=== PATIENT | female | born 1935 | race Caucasian/White ===

== ENCOUNTER 2016-07-11 06:03 | Day surgery (SDC) | payer MEDICARE ==
[2016-07-06 12:47] VITALS: BMI 27.9
[2016-07-11] MEDS ORDERED: SODIUM CHLORIDE 0.9% 500 ML IV ONE (06:27)
[2016-07-11 06:28] LABS: Glucose,Whole Blood 115 mg/dL (75-99)
[2016-07-11 06:30] VITALS: RESP 16; TEMP 98.2
[2016-07-11] MEDS ORDERED: MIDAZOLAM 2 MG/2 ML VIAL ONE (06:52)
[2016-07-11] MEDS ORDERED: fentaNYL (PF) 50 MCG/ML 2 ML AMP ONE (06:52)
[2016-07-11] MEDS ORDERED: BENZOCAINE SPRAY 100 APPLIC/CAN MUCOUS MEM ONE ×2 (07:00→07:02)
[2016-07-11] MEDS ORDERED: MIDAZOLAM 2 MG/2 ML VIAL IVP ONE (07:02)
[2016-07-11] MEDS ORDERED: fentaNYL (PF) 50 MCG/ML 2 ML AMP IV ONE (07:02)
[2016-07-11] MEDS ORDERED: FUROSEMIDE 10 MG TAB PO PRN (07:26)
[2016-07-11] MEDS ORDERED: SODIUM CHLORIDE 0.9% 1,000 ML IV SCH (07:30)
[2016-07-11 08:15] VITALS: BP 134/56; PULSE 69
[2016-07-11] MEDS ORDERED: ASPIRIN 81 MG CHEW PO SCH (09:00)
[2016-07-11] MEDS ORDERED: PANTOPRAZOLE 40 MG TABLET PO SCH (09:00)
[2016-07-11] MEDS ORDERED: metFORMIN 500 MG TAB PO SCH (09:00)
--- NOTE | 2016-07-11 10:36 | ECHOT ---
DATE OF SERVICE: INDICATION: Evaluation of aortic valve. PROCEDURE: After explaining the procedure to the patient as well as risks and complications, her blood pressure, heart rate, O2 saturation were monitored. Following that, the throat was sprayed with Cetacaine. Following that, she received 50 mcg intravenous fentanyl and 1 mg intravenous Versed after achieving moderate conscious sedated state, the probe was introduced into the esophagus without difficulty. Images were obtained. Following that, the probe was removed. There was no immediate complication. FINDINGS: Left atrial size is mildly dilated. Left ventricular size and systolic function are normal. The aortic valve revealed fibrocalcific change of the aortic cusp, it is a tricuspid valve with reduced opening. By planimetry, the valve area is between 0.9 and 1 sq. cm. The mitral valve revealed mitral annular calcification. There was mild prolapse of the posterior mitral valve leaflets. Tricuspid valve is normal. Descending thoracic aorta revealed mild atherosclerotic changes. Contrast bubble study revealed no evidence of shunting across the interatrial septum with Valsalva maneuver. No pericardial effusion was noted. Doppler pulse wave and color flow Doppler were obtained and revealed a peak gradient of 15 mm with a mean gradient of 10 mmHg across the aortic valve. There was mild to moderate eccentric mitral regurgitation with mild tricuspid regurgitation. There was no shunting by color Doppler study. CONCLUSION: 1. Dilated left atrium. 2. Normal left ventricular size and systolic function. 3. Tricuspid aortic valve with severe calcification and reduced opening with valve area of 0.9 to 1 sq cm and a mean gradient of 10 mmHg consistent with a normal function with low grade significant stenosis. 4. Mitral annular calcification with mild prolapse of the posterior mitral valve leaflets with mild to moderate mitral regurgitation. 5. Mild atherosclerotic changes of the descending thoracic aorta. 6. No evidence of shunting across the interatrial septum. [facility]
[2016-07-11] MEDS ORDERED: METOPROLOL SUCCINATE (ER) 50 MG TAB.ER.24H PO SCH (21:00)
[2016-07-11] MEDS ORDERED: ATORVASTATIN 40 MG TAB PO SCH (21:00)
[2016-07-12] MEDS ORDERED: LISINOPRIL 10 MG TAB PO SCH (09:00)
[2016-07-12] MEDS ORDERED: MULTIVITAMINS, THERA 1 EACH TAB PO SCH (12:00)
== END 2016-07-11 08:50 | disposition home or self-care (01) ==
LOC: CATHCVL 06:03
PROVIDERS: ATTEND Internal Medicine Interventional Cardiology
DX: I35.0 Nonrheumatic aortic (valve) stenosis (principal); I51.7 Cardiomegaly; I34.1 Nonrheumatic mitral (valve) prolapse; I70.0 Atherosclerosis of aorta; I10 Essential (primary) hypertension; E78.2 Mixed hyperlipidemia; E11.9 Type 2 diabetes mellitus without complications; Z82.49 Family history of ischemic heart disease and other diseases of the circulatory system; Z79.84 Long term (current) use of oral hypoglycemic drugs; Z79.82 Long term (current) use of aspirin; Z79.891 Long term (current) use of opiate analgesic; Z79.899 Other long term (current) drug therapy
CPT/HCPCS: 93312; 93320; 93325; 99152; J2250; J3010

== ENCOUNTER 2016-07-28 06:29 | Day surgery (SDC) | payer MEDICARE ==
[2016-07-26 10:11] VITALS: BMI 29.8
[~2016-07-28 06:29] MED LIST: ALPRAZolam 0.25 MG TAB PO PRN; ALPRAZolam 0.5 MG TAB PO PRN; ASPIRIN 325 MG TAB PO STA; ATORVASTATIN 80 MG TAB PO STA; NITROGLYCERIN SL TABS 0.4 MG TAB SUBLINGUAL PRN; SODIUM CHLORIDE 0.9% 1,000 ML in EMPTY BAG 1 BAG IV ONE
[2016-07-28 07:03] LABS: Basophils # (A) 0.1 k/uL (0-0.2); Basophils % (A) 1 %; CH 30.3; CHCM 33.7; Eosinophils # (A) 0.3 k/uL (0-0.7); Eosinophils % (A) 4 %; HCT 35.8 % (34.0-46.0); HGB 11.8 gm/dL (11.4-16.0); Luc # (Auto) 0.15; Luc % (Auto) 2; Lymphocytes # (A) 2.3 k/uL (1.0-4.8); Lymphocytes % (A) 28 %; MCH 29.8 pg (25.0-35.0); MCV 90.3 fL (80.0-100.0); Mean Platelet Volume 6.6; Monocytes # (A) 0.5 k/uL (0-1.0); Monocytes % (A) 6 %; Neutrophils # (A) 5.1 k/uL (1.3-7.7); Neutrophils % (A) 60 %; RBC 3.97 m/uL (3.80-5.40); RDW 14.3 % (11.5-15.5); WBC 8.5 k/uL (3.8-10.6); WBC (Perox) 8.68
[2016-07-28 07:09] LABS: Glucose,Whole Blood 119 mg/dL (75-99)
[2016-07-28] MEDS ORDERED: LIDOCAINE 2% INJ 20 MG/ML (20 ML MDV) ONE (07:41)
[2016-07-28] MEDS ORDERED: diphenhydrAMINE 50 MG/ML 1 ML VIAL ONE (07:44)
[2016-07-28] MEDS ORDERED: fentaNYL (PF) 50 MCG/ML 2 ML AMP ONE (07:44)
[2016-07-28] MEDS ORDERED: fentaNYL (PF) 50 MCG/ML 2 ML AMP IV ONE (07:45)
[2016-07-28] MEDS ORDERED: diphenhydrAMINE 50 MG/ML 1 ML VIAL IVP ONE (07:45)
[2016-07-28] MEDS ORDERED: LIDOCAINE 2% INJ 20 MG/ML SQ ONE (07:47)
[2016-07-28] MEDS ORDERED: IOHEXOL 350 MG/ML 125ML BOTTLE INJ ONE (08:00)
[2016-07-28 08:17] LABS: Site PA
[2016-07-28 08:19] LABS: Site RA
[2016-07-28 08:22] LABS: Site FA
[2016-07-28] MEDS ORDERED: RX INFO: IV CONTRAST WAS GIVEN 1 EACH MISC MISCELLANE PRN (08:51)
[2016-07-28] MEDS ORDERED: FUROSEMIDE 10 MG TAB PO PRN (08:52)
[2016-07-28] MEDS ORDERED: MULTIVITAMINS, THERA 1 EACH TAB PO SCH (09:00)
[2016-07-28] MEDS ORDERED: SODIUM CHLORIDE 0.9% 1,000 ML IV SCH (09:00)
--- NOTE | 2016-07-28 11:43 | CT ---
EXAMINATION TYPE: CT chest wo con DATE OF EXAM: 07/28/2016 COMPARISON: NONE HISTORY: Evaluate ascending aortic calcification or aneurysm, presumed abnormal outside x-ray CT DLP: 338.50 mGycm. Automated Exposure Control for Dose Reduction was Utilized. TECHNIQUE: CT scan of the thorax is performed without IV contrast. FINDINGS: LUNGS: There is dependent atelectatic change in both lungs. There is no pleural effusion or pneumotho rax seen bilaterally. Tracheobronchial tree is patent. MEDIASTINUM: Lack of IV contrast is noted to limit evaluation for mediastinal and especially hilar ad enopathy. There are no definitive greater than 1 cm hilar or mediastinal lymph nodes. Main pulmonary artery measures 3.0 cm diameter on axial image 23. Adjacent ascending aorta measures 3.4 cm in diamet er. There is prominent coronary artery calcification. There is moderate calcified plaque in the aorti c arch extending into descending aorta. No cardiomegaly or significant pericardial effusion is seen. Mitral valvular surgery or calcifications are suspected. There is small to moderate size hiatal herni a. OTHER: Contrast excretion in collecting systems suggest contrast from recent prevascular procedure or outside recent CT. Aorta becomes small caliber infrarenal level measuring 1.3 cm in diameter, modera te to severe calcified plaque is present at this level. Mild multilevel spurring and spine is noted. There is scarring and dystrophic calcification left breast from lumpectomy with surgical clips in lef t axilla. IMPRESSION: Moderate calcified atherosclerotic change aortic arch and descending aorta. No aneurysm i s evident. No significant acute pulmonary process is seen.
--- NOTE | 2016-07-28 12:42 | P.GSCN ---
History of Present Illness Consult date: 07/28/16 Reason for Consult: evaluation for surgical aortic valve replacement and coronary artery bypass grafting Requesting physician: Terri Amato History of present illness: patient is a pleasant 81 years old female referred by Dr. Amato for evaluation of severe aortic valve stenosis and coronary artery disease. patient had noticed swelling in both lower extremities which was in [place] and had a workup there that concluded to severe aortic valve stenosis. she had workup here by Dr. Amato including a transesophageal echocardiogram that concluded to a low gradient normal output severe aortic valve stenosis. Cardiac catheterization today showed extensive calcification of the coronary vessels with severe ostial stenosis of the right coronary artery and mid to distal left anterior descending artery stenosis. Patient complains of stable angina with exertion. She denies syncope. At this point she notices more swelling in her legs at the end of the day and with dependent position. 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 AND LUMPECTOMY., SEE CARDIOLOGY H & P. History of Any Multi-Drug Resistant Organisms: None Reported Past Surgical History: Breast Surgery, Orthopedic Surgery Additional Past Surgical History / Comment(s): CATARACTS, ARTHROSCOPY CATHY KNEES , ENDOMETRIAL POLYPS, LEFT BREAST LUMPECTOMY, ESOPHAGEAL DILATION X2., EPIDURAL INJECTIONS. Past Anesthesia/Blood Transfusion Reactions: Postoperative Nausea & Vomiting ( PONV) Past Psychological History: No Psychological Hx Reported Smoking Status: Never smoker Past Alcohol Use History: Rare Past Drug Use History: None Reported - Past Family History Mother Family Medical History: No Reported History Medications and Allergies Home Medications Medication Instructions Recorded Confirmed Type Aspirin [Adult Low Dose Aspirin EC] 81 mg PO DAILY 07/06/16 07/28/16 History Atorvastatin [Lipitor] 40 mg PO HS 07/06/16 07/28/16 History Furosemide [Lasix] 5 mg PO Q48H PRN 07/06/16 07/28/16 History Lansoprazole [Prevacid] 15 mg PO QAM 07/06/16 07/28/16 History Lisinopril [Prinivil] 10 mg PO QAM 07/06/16 07/28/16 History Metoprolol Succinate (ER) [Toprol 50 mg PO HS 07/06/16 07/28/16 History Xl] Multivitamin with Iron 1 each PO Q48H 07/06/16 07/28/16 History [Multivitamins with Iron] metFORMIN HCL [Glucophage] 500 mg PO BID 07/06/16 07/28/16 History Allergies Allergy/AdvReac Type Severity Reaction Status Date / Time ciprofloxacin [From Cipro] AdvReac leg cramps Verified 07/26/16 10:00 Surgical - Exam Vital Signs Temp Pulse Resp BP Pulse Ox 98.4 F 74 18 177/74 96 07/28/16 07:08 07/28/16 07:08 07/28/16 07:08 07/28/16 07:08 07/28/16 07:08 - General well developed, well nourished, no distress - Eyes normal ocular movement, no icteric - ENT no hearing loss, no congestion - Neck no masses, trachea midline - Respiratory normal respiratory effort, clear to auscultation - Cardiovascular Rhythm: regular Heart Sounds: normal: S1, S2 Abnormal Heart Sounds: systolic murmur - Abdomen Abdomen: soft, non tender, no guarding, no rigid, no rebound - Genitourinary deferred - Rectum deferred - Integumentary no rash, no abnormal pigmentation - Neurologic no disoriented, no combative - Musculoskeletal congenital malformation the right hand Results - Labs 07/28/16 06:50 Abnormal Lab Results - Last 24 Hours (Table) 07/28/16 Range/Units 06:51 POC Glucose (mg/dL) 119 H (75-99) mg/dL - Imaging CT scan - chest: report reviewed, image reviewed, other (calcification of the left subclavian artery that needs to be investigated to R/O significant stenosis if we pursue a surgical approach) Additional studies: JIM report performed on 07/11/2016 reviewed. Preserved systolic left ventricular function , severe aortic stenosis by planimetry with low gradient an [id number] mitral valve regurgitation cardiac catheterization today shows extensive consultation of the arch coronary vessels aortic sinuses and mitral annulus. There is severe calcific ostial stenosis of the right coronary artery. the RCA distal branches R small with diffuse stratification of the right coronary artery. So diffuse calcific disease of the left anterior descending artery with a severe stenosis in the mid to distal aspect. The circumflex system is calcified but is free of significant stenosis. Assessment and Plan Plan: 81 years old lady with above comorbidities with currently a low gradient severe aortic stenosis with preserved systolic function , extensive calcification of the coronary arteries with severe stenosis of the ostial right admit the distal LAD. Patient represents an intermediate risk for surgical aortic valve replacement and coronary artery bypass grafting. Her extensive calcific disease might increase her risks. Patient's would like to discuss also alternative strategy i.e a PTCA stenting/TAVR approach which I personally think might be reasonable. Patient to have further discussion with Dr. Amato. Thank you for the privilege of this consult
[2016-07-28] MEDS: LISINOPRIL 10 MG TAB PO SCH (17:38)
[2016-07-28] MEDS: PANTOPRAZOLE 40 MG TABLET PO SCH (17:39)
--- NOTE | 2016-07-28 18:25 | CC ---
Mrs. Yepez is an 81-year-old female with history of aortic stenosis, hypertension, hyperlipidemia and diabetes mellitus who presented with symptoms of episode of chest discomfort, exertional pattern. In view of that, recommendation was made regarding cardiac catheterization. The procedure as well as the risks and complications were discussed with the patient, who is in full understanding and agreement. PROCEDURE: Patient was brought to greenhouse laborer in fasting, semi-sedated state after receiving fentanyl and Benadryl and after achieving moderate conscious sedated state, using Xylocaine anesthesia and Seldinger technique, a 6 Tristanian sheath was introduced in the right femoral artery and an 8 Tristanian sheath in the right femoral vein. Right heart catheterization was performed using [place] catheter. Multiple pressure samples were obtained, cardiac output by thermodilution risk calculated. Following that, selective right and left coronary angiography was performed using 6 Tristanian 3-1/2 Bend left Alla and 4 bend right Alla catheter. Multiple views of coronary arteries, including hemiaxial views, were obtained. Following that, 6 Tristanian tight pigtail catheter was introduced into the left ventricle and a 30-degree VINSON view of the left ventricle was obtained. Following that, catheter and sheaths were removed. Hemostasis was obtained with deployment of an Angio-Seal in the right femoral artery and compression bright femoral vein. There were no immediate complications. HEMODYNAMICS: Right atrial saturation 76%. Pulmonary artery saturation 75%. Femoral artery saturation 97%. Cardiac output by thermodilution 6.2 L per minute and by April 4.9 L/m. Aortic valve area by thermodilution 0.87 and by April 1.02 cm2. Pulmonary capillary wedge pressure A wave of 12, V wave of 8 with a mean of 8 mmHg. Pulmonary artery systolic pressure of 38 with a diastolic of 10 and a mean of 22 mmHg. Right ventricle systolic 38 with an end-diastolic of 4 mmHg. Right atrium A wave of 6, V wave of 3 with a mean of 3 mmHg. There was a gradient of 40 mmHg across the aortic valve. FLUOROSCOPY: There was severe calcification involving all the coronary arteries heavy as well as calcification of mitral annulus and the aortic valve. Left main: This is a very short-sized vessel bifurcating immediately to the LAD and to the left circumflex. Left anterior descending artery: This vessel is large in caliber, reaching toward the apex with a wraparound apex segment, giving rise to 2 diagonal branches. The vessel is heavily calcified throughout its course, about 30% to 40% plaque proximally. In the mid segment, diffuse intimal disease up to 20% to 30%. In the mid-distal segment, there is an eccentric area of 80%. The rest of the vessel has no high-grade stenosis. Left circumflex: This is a nondominant vessel, large in caliber, giving rise to 2 obtuse marginal branches. The left circumflex has mild intimal disease without any evidence of high-grade stenosis. Right coronary artery: This is a large dominant vessel, bifurcating into PDA and posterolateral segment and branches, heavily calcified at the ostium. At the ostium, there is a 99% stenosis. The mid segment of the right coronary artery has another area of stenosis of about 70% to 80%. The rest of the vessel has diffuse disease without any high-grade stenosis. LEFT VENTRICULOGRAM: Left ventriculogram was performed in 30-degree VINSON view and revealed normal left ventricular size and systolic function. Ejection fraction is 60%. There was arrhythmia-induced mitral regurgitation. CONCLUSION: 1. Severely calcified coronary arteries and aortic valve. 2. Critical stenosis involving the ostium of the right coronary artery with significant disease in the mid left anterior descending artery and mild to moderate disease in the proximal left anterior descending artery and the circumflex. 3. Normal left ventricular size and systolic function. 4. Severe aortic stenosis. RECOMMENDATIONS: In view of the findings and anatomy, I have recommended to proceed with evaluation for possible surgical aortic valve repair and bypass to the right coronary artery. The other option is to have a PCI to the right coronary artery, although the PCL of the right coronary artery is a very high-risk procedure because of the severe calcification and the location of the lesion. Those findings and recommendations were discussed with the patient and her family, who are in full understanding and agreement.
--- NOTE | 2016-07-28 18:28 | LTR ---
July 28, 2016 RE: Danay Yepez Dear Dr. Lares: I had the pleasure to perform cardiac catheterization on Mrs. Yepez at [facility] on the 28 of July and a full copy of the procedure will be forwarded to you. In brief, she was found to have severely calcified coronary arteries with severe aortic stenosis and severe coronary artery disease at the ostium of the right coronary artery. At this time, I would recommend to proceed with evaluation for aortic valve replacement and coronary artery bypass grafting. I will keep you updated on her progress and thank you again for allowing me to participate in this pleasant patient's care. Please feel free to call for any questions. Sincerely yours, JULISSA ENCARNACION MD
--- NOTE | 2016-07-28 18:30 | CC ---
ADDENDUM: Duration of the procedure was 1 hour.
[2016-07-28] MEDS ORDERED: METOPROLOL SUCCINATE (ER) 50 MG TAB.ER.24H PO SCH (21:00)
[2016-07-28] MEDS ORDERED: ATORVASTATIN 40 MG TAB PO SCH (21:00)
[2016-07-29 04:16] VITALS: TEMP 98
[2016-07-29 07:23] VITALS: BP 109/54; PULSE 61; RESP 16
[2016-07-29 07:46] LABS: Anion Gap 9 mmol/L; Blood Urea Nitrogen 19 mg/dL (7-17); Calcium 8.9 mg/dL (8.4-10.2); Carbon Dioxide 19 mmol/L (22-30); Chloride 110 mmol/L (98-107); Glucose 112 mg/dL (74-99); Non-African American GFR(MDRD) >60 (>60 ml/min/1.73 sqM); Sodium 138 mmol/L (137-145)
[2016-07-29] MEDS ORDERED: ASPIRIN 81 MG CHEW PO SCH (09:00)
--- NOTE | 2016-07-29 10:12 | P.PN ---
Subjective Principal diagnosis: Coronary artery disease, severe aortic valve stenosis, evaluation of surgical versus nonsurgical approach. Patient's currently sitting up in bed in no acute distress. Denies pain, shortness of breath. Objective - Vital Signs Vital signs: Vital Signs Temp 98 F 07/29/16 07:23 Pulse 61 07/29/16 07:23 Resp 16 07/29/16 07:23 BP 109/54 07/29/16 07:23 Pulse Ox 100 07/29/16 07:23 Intake & Output 07/28/16 07/29/16 07/29/16 18:59 06:59 18:59 Intake Total 50 Balance 50 Weight 71.668 kg Intake: IV 50 Other: Voiding Method Toilet Toilet # Voids 1 1 - Constitutional General appearance: Present: cooperative, no acute distress - Respiratory Details: Lungs sounds clear to auscultation bilaterally. Respirations even, nonlabored. Currently on room air with saturation 95% - Cardiovascular Details: S1, S2 present. Regular rate and rhythm, normal sinus rhythm on telemetry. Systolic murmur present. No edema present. - Gastrointestinal Gastrointestinal Comment(s): Abdomen soft, nontender, nondistended. Active bowel sounds 4 quadrants. Tolerating diet. - Genitourinary Genitourinary Comment(s): Continues to void clear, yellow urine. - Integumentary Integumentary Comment(s): Right groin soft, nontender, slightly ecchymotic. - Musculoskeletal Musculoskeletal: Present: gait normal, strength equal bilaterally - Psychiatric Psychiatric: Present: A&O x's 3, appropriate affect, intact judgment & insight - Allied health notes Allied health notes reviewed: nursing - Labs CBC & Chem 7: 07/28/16 06:50 07/29/16 07:06 Labs: Abnormal Lab Results - Last 24 Hours (Table) 07/29/16 Range/Units 07:06 Chloride 110 H (98-107) mmol/L Carbon Dioxide 19 L (22-30) mmol/L BUN 19 H (7-17) mg/dL Glucose 112 H (74-99) mg/dL Assessment and Plan (1) Coronary artery disease Status: Acute (2) Severe aortic stenosis Status: Acute (3) Diabetes mellitus Status: Acute (4) Hypertension Status: Acute (5) History of breast cancer Status: Acute Plan: 1. Recommend continuing aspirin, beta jose, statin, TITI inhibitor. 2. Patient being referred/worked up for possible TAVR. 3. Medical management per primary service. 4. Will continue to follow patient. Time with Patient: Greater than 30
[2016-07-29] MEDS: LISINOPRIL 10 MG TAB PO SCH (10:34)
[2016-07-29] MEDS: PANTOPRAZOLE 40 MG TABLET PO SCH (10:35)
--- NOTE | 2016-07-29 16:18 | PN ---
Ms. Yepez is an 81-year-old female with history of aortic valve disease, history of hypertension, hyperlipidemia, diabetes mellitus, who presented with symptoms of chest discomfort with exertion, underwent cardiac catheterization, was found to have heavily calcified coronary arteries, severe aortic stenosis, normal left ventricular systolic function with critical stenosis involving the ostium of the right coronary artery that was heavily calcified. She was seen by Dr. Salmon for surgical opinion, and the options of TAVR and PCI versus surgery were discussed with the patient. She is doing well this morning. Her breathing has been stable. She denies any dizziness or palpitation. She denies any nausea. She is continued on: 1. Aspirin once a day. 2. Lipitor 40 mg daily. 3. Lasix 5 mg q. 48 hours. 4. Lisinopril 10 mg daily. 5. Metoprolol succinate 50 mg daily. 6. Protonix 40 mg daily. PHYSICAL EXAMINATION: Blood pressure 109/50 with a heart rate in the 60s. LUNGS: Clear. HEART: Regular rate, rhythm. S1, S2 with systolic murmur 3/6, mid to late peaking, heard at the base. No diastolic murmur. ABDOMEN: Soft, nontender. EXTREMITIES: No edema. RIGHT GROIN: No hematoma. Lab data revealed BUN and creatinine of 19 and 0.7. Potassium 5.0. Calcium 8.9. IMPRESSION: 1. Severely calcified coronary arteries with severe stenosis involving the ostium of the right coronary artery and significant disease in the mid distal left anterior descending coronary artery. 2. Severe aortic stenosis. 3. Hypertension. 4. Hyperlipidemia. 5. Diabetes mellitus. RECOMMENDATIONS: Patient will be discharged home today. She is in favor of seeking a second opinion at the [facility]. Will arrange for her to be evaluated for possible surgical versus TAVR to address her aortic valve disease. The findings and recommendations were discussed with the patient, who is in full understanding and agreement.
== END 2016-07-29 11:07 | disposition home or self-care (01) ==
LOC: CATHCVL 06:29 → 3OBS 08:37 → CATHCVL 07-29 11:07
PROVIDERS: ATTEND Internal Medicine Interventional Cardiology
DX: I25.118 Atherosclerotic heart disease of native coronary artery with other forms of angina pectoris (principal); I35.0 Nonrheumatic aortic (valve) stenosis; I25.84 Coronary atherosclerosis due to calcified coronary lesion; E78.2 Mixed hyperlipidemia; E11.9 Type 2 diabetes mellitus without complications; I10 Essential (primary) hypertension; I70.0 Atherosclerosis of aorta; Z79.84 Long term (current) use of oral hypoglycemic drugs; Z79.82 Long term (current) use of aspirin; Z79.899 Other long term (current) drug therapy; Z82.49 Family history of ischemic heart disease and other diseases of the circulatory system; Z88.1 Allergy status to other antibiotic agents; Z85.3 Personal history of malignant neoplasm of breast
CPT/HCPCS: 93460; 80048; 85018; 82810; 85025; 71250; 99152; 99153 ×2; C1769 ×3; C1760; C1894 ×2; J2001; J1200; J3010; Q9967